=== PATIENT | female | born 1985 | race Caucasian/White ===

== ENCOUNTER 2016-12-20 10:34 | Emergency (ER) | payer OTHER ==
[2016-12-20] MEDS ORDERED: ONDANSETRON 4 MG ORAL DISINTEGRATING TAB (S0181) As Ordered ONE (11:18)
[2016-12-20] MEDS ORDERED: KETOROLAC 30 MG/ML VIAL (J1885) As Ordered ONE (11:18)
[2016-12-20 11:52] LABS: BASO % 0.4 % (0.0-1.0); EOS # 0.1 K/mm3 (0.0-0.50); EOS % 1.9 % (0.0-3.0); LARGE UNSTAINED CELL # 0.1 K/mm3 (0.0-0.4); LARGE UNSTAINED CELL % 1.7 % (0.0-4.0); LYMPH # 0.8 K/mm3 (1.5-6.5); LYMPH % 15.6 % (24.0-44.0); MEAN CORPUSCULAR HEMOGLOBIN 27.6 pg (27.0-33.0); MEAN CORPUSCULAR HGB CONC 32.4 g/dl (32.0-36.5); MEAN CORPUSCULAR VOLUME 85.2 fl (80.0-96.0); MONO # 0.4 K/mm3 (0.0-0.8); NEUTROPHILS # 3.1 K/mm3 (1.8-7.7); NEUTROPHILS % 70.4 % (36.0-66.0); PLATELET COUNT, AUTOMATED 241 k/mm3 (150-450); RED CELL DISTRIBUTION WIDTH 13.2 % (11.5-14.5); WHITE BLOOD COUNT 4.4 K/mm3 (4.0-10.0)
[2016-12-20 12:16] LABS: ANION GAP 8 MEQ/L (8-16); BLOOD UREA NITROGEN 8 MG/DL (7-18); CALCIUM LEVEL 8.7 MG/DL (8.5-10.1); CARBON DIOXIDE LEVEL 25 MEQ/L (21-32); CHLORIDE LEVEL 106 MEQ/L (98-107); CREATININE FOR GFR 0.78 MG/DL (0.55-1.02); GLOMERULAR FILTRATION RATE > 60.0 (>60); GLUCOSE, FASTING 88 MG/DL (70-105); POTASSIUM SERUM 3.8 MEQ/L (3.5-5.1); SODIUM LEVEL 139 MEQ/L (136-145)
--- NOTE | 2016-12-20 12:40 | REP ---
Clinical: Pelvic pain. Rule out torsion . Technique: Transabdominal pelvic ultrasound followed by transvaginal examination for better evaluation of the endometrium and adnexa with color Doppler evaluation of the ovaries. Findings: Bladder is unremarkable and measures 5.8 x 2.1 x 3.7 cm . Normal anteverted uterus measures 6.6 x 3.1 x 3.5 cm and IUD in satisfactory position . The endometrial complex measures 3.0 mm thickness. No discrete uterine or endometrial abnormalities are appreciated. Bilateral ovaries are normal in appearance and vascularity without evidence for torsion. Right ovary measures 2.4 x 1.8 x 3.1 cm ; R I = 0.66 . Left ovary measures 3.1 x 2.6 x 2.8 cm with 2.1 cm dominant follicle ; R I = venous flow noted . Small amount of pelvic free fluid likely physiologic. No adnexal mass. Impression: 1. Normal uterus and ovaries without evidence for torsion. IUD in satisfactory position. II. Small amount of free fluid in the pelvis likely physiologic. Signed by Edmundo Mooney MD 12/20/2016 12:31 P
--- NOTE | 2016-12-20 13:12 | EDDOCDS ---
Physician Documentation [facility] Name: Christine Doe Age: 31 yrs Sex: Female : 1985 Arrival Date: 12/20/2016 Time: 10:34 Bed PR Private MD: Josephine Vargas E Disposition: 12/20/16 12:46 Discharged to Home/Self Care. Impression: Viral infection, unspecified, Nasal congestion, Abdominal and pelvic pain. - Condition is Stable. - Discharge Instructions: Pelvic Pain, Female, [id number], Viral Infections, [id number]. - Prescriptions for Diclofenac Sodium 75 mg Oral Tablet, Delayed Release (E.C.) - take 1 tablet by ORAL route 2 times per day; 30 tablet. Zofran 4 mg Oral Tablet - take 1 tablet by ORAL route 4 times per day As needed; 10 tablet. - Medication Reconciliation, Local Pharmacy Hours form. - Follow up: Josephine Vargas; When: Call to arrange an appointment; Reason: Further diagnostic work-up, Recheck today's complaints, Continuance of care. - Problem is new. - Symptoms are unchanged. Historical: - Allergies: Ceclor (Anaphylaxis); - Home Meds: 1. none - PMHx: iga immune deficiency; Seasonal Allergies; RAD; - PSHx: wisdom teeth; sinus stents; - Social history: Smoking status: Patient states was never smoker of tobacco. No barriers to communication noted, The patient speaks fluent Spanish, Speaks appropriately for age. - Family history: No immediate family members are acutely ill. - : The pt / caregiver states he / she is not on anticoagulants. Home medication list is obtained from the patient. - Exposure Risk Screening:: None identified. 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 2 in. (157.48 cm); Pain 7/10; 10:35 Body Mass Index 25.61 (63.50 kg, 157.48 cm) [facility] MDM: 11:14 UCG by Nursing ordered. btw 11:14 Ondansetron ODT Oral Disintegrating Tablet 4 mg PO once ordered. btw 11:14 ketorolac 30 mg IM once ordered. btw 11:30 US PELVIC NON-OB COMPLETE Ordered. EDMS 11:30 DUPLEX SCAN LIMITED (DOPPLER) Ordered. EDMS 11:31 URINALYSIS Ordered. EDMS 11:31 CBC WITH DIFFERENTIAL Ordered. EDMS 11:31 BASIC METABOLIC PROFILE Ordered. EDMS 11:31 URINE CULTURE Ordered. EDMS 11:43 Financial registration complete. lg 11:56 [facility] Payment Agreement was scanned into [employer] and attached to record. lg 11:59 Transvaginal NON- US Ordered. EDMS 12:41 URINALYSIS Reviewed. btw 12:41 CBC WITH DIFFERENTIAL Reviewed. btw 12:41 BASIC METABOLIC PROFILE Reviewed. btw 12:41 US PELVIC NON-OB COMPLETE Reviewed. btw Point of Care Testing: Urine : 11:59 hCG Reading: Negative; Control Reading: Positive; [facility] Ranges: Administered Medications: 11:27 Drug: Ondansetron ODT 4 mg [ondansetron 4 mg disintegrating tablet (1 tabs)] Route: PO; [facility] 11:27 Drug: ketorolac 30 mg [ketorolac 30 mg/mL (1 mL) injection solution (1 mL)] Route: IM; [facility] Site: left deltoid; 13:09 Follow up: Response: Pain is decreased [facility] Signatures: Dispatcher [facility] Ebenezer Stein RN RN Tamanna Bill RN RN [facility] Dangelo Blum, Hussein Reg lg Flaco Khoury PA PA w Yoselyn Pennington RN [facility] The chart was reviewed and I authenticate all verbal orders and agree with the evaluation and treatment provided.Corrections: (The following items were deleted from the chart) 13:02 12:54 US PELVIC NON-OB COMPLETE+US ordered. EDMS EDMS 13:02 12:54 DUPLEX SCAN LIMITED (DOPPLER)+US ordered. EDMS EDMS 13:04 12:54 URINE CULTURE+NHUNG ordered. EDMS EDMS 13:06 12:54 URINALYSIS+LAB ordered. EDMS EDMS 13:07 12:54 CBC WITH DIFFERENTIAL+LAB ordered. EDMS EDMS 13:07 12:54 BASIC METABOLIC PROFILE+LAB ordered. EDMS EDMS Attachments: 11:56 [facility] Payment Agreement lg MTDD
--- NOTE | 2016-12-20 13:12 | EDDOCDS ---
Nurse's Notes [facility] Name: Christine Doe Age: 31 yrs Sex: Female : 1985 Arrival Date: 12/20/2016 Time: 10:34 Bed PR Private MD: Josephine Vargas E Diagnosis: Viral infection, unspecified;Nasal congestion;Abdominal and pelvic pain Presentation: 12/20 10:45 Presenting complaint: Patient states: weak, body aches and chills, sweating. temp 99.7. srm symptoms for 24 hours. no sore throat, cough, runny nose. Adult Sepsis Screening: The patient does not have new or worsening altered mentation. Patient's respiratory rate is less than 22. Systolic blood pressure is greater than 100. Patient has a qSOFA score of 0- Negative Sepsis Screen. Suicide/Homicide risk assessment- the patient denies having any suicidal and/or homicidal ideations and does not present with any other emotional, behavioral or mental health complaints. Status: The patient is a dependent. Transition of care: patient was not received from another setting of care. 10:45 Acuity: CATHERINE Level 4 srm 10:45 Method Of Arrival: Walkin/Carried/Asstd srm Triage Assessment: 10:47 General: Appears in no apparent distress, Behavior is appropriate for age, cooperative. srm Pain: Pain currently is 7 out of 10 on a pain scale. Pt Declines HIV testing. 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 none - PMHx: iga immune deficiency; Seasonal Allergies; RAD; - PSHx: wisdom teeth; sinus stents; - Social history: Smoking status: Patient states was never smoker of tobacco. No barriers to communication noted, The patient speaks fluent Setswana, Speaks appropriately for age. - Family history: No immediate family members are acutely ill. - : The pt / caregiver states he / she is not on anticoagulants. Home medication list is obtained from the patient. - Exposure Risk Screening:: None identified. Screenin:09 Screening information is obtained from the patient. Fall risk: No risks identified. bcj Assistance ADL's: requires no assistance with activities of daily living. Abuse/DV Screen: The patient / caregiver reports he/she is: not in a situation that causes fear, pain or injury. Nutritional screening: No deficits noted. Advance Directives: Currently, there is no health care proxy. home support is adequate. Assessment: 12:00 General: Appears in no apparent distress, comfortable, Behavior is tearful while [facility] receiving medications and shaking and tearful when blood drawn, states "I feel very nervous about needles". Reviewed patient choices, related concerns to provider and reviewed NPO with patient. 13:09 General: Appears in no apparent distress, comfortable, Behavior is cooperative. Pain: bcj Denies pain. Derm: Skin is pink, warm & dry. Vital Signs: 10:35 BP 143 / 78; Pulse 70; Resp 18; Temp 97.6; Pulse Ox 99% ; Weight 63.5 kg; Height 5 ft. jlm 2 in. (157.48 cm); Pain 7/10; 10:35 Body Mass Index 25.61 (63.50 kg, 157.48 cm) [facility] Vitals: 10:35 Log In Time: December 20, 2016 at 10:35. [facility] ED Course: 10:34 Patient visited by Sandra Lugo, Shade Cutter. jlm 10:34 Patient moved to Waiting jlm 10:35 Josephine Vargas is Private Physician. jlm 10:36 Patient moved to Pre RCE jlm 10:46 Triage Initiated srm 10:53 Patient moved to Triage 3 sew 10:59 [facility] btw 10:59 Fauzia Chavez MD is Attending Physician. btw 10:59 Patient visited by Flaco Khoury PA. btw 11:39 Patient moved to TR2 sew 11:48 Patient moved to Ultrasound br3 11:55 Patient name changed from Christine\\S\\\\S\\Hughs\\S\\ to Christine\\S\\Rula\\S\\Hughs. EDMS 11:56 [facility] Payment Agreement was scanned into [employer] and attached to record. lg 12:12 Patient moved to TR2 br3 12:41 US PELVIC NON-OB COMPLETE Returned. EDMS 12:46 Josephine Vargas is Referral Physician. btw 12:46 Patient moved to PR1 / 25 [facility] 13:09 No apparent distress. Awaiting disposition. bcj 13:09 The patient / caregiver is instructed regarding the plan of care and ED course. bcj 13:09 No IV's were initiated during this patient's visit. No procedures done that require [facility] assistance. 13:11 Patient visited by Ebenezer Oconnor RN. [facility] Administered Medications: 11:27 Drug: Ondansetron ODT 4 mg [ondansetron 4 mg disintegrating tablet (1 tabs)] Route: PO; [facility] 11:27 Drug: ketorolac 30 mg [ketorolac 30 mg/mL (1 mL) injection solution (1 mL)] Route: IM; [facility] Site: left deltoid; 13:09 Follow up: Response: Pain is decreased [facility] Point of Care Testing: Urine : 11:59 hCG Reading: Negative; Control Reading: Positive; [facility] Ranges: Order Results: Lab Order: URINALYSIS; SPEC'M 12/20/16 11:33 Test: APPEARANCE, URINE; Value: CLEAR; Range: CLEAR; Status: F Test: COLOR, URINE; Value: YELLOW; Range: YELLOW; Status: F Test: PH,URINE; Value: 6.0; Range: 5.0-9.0; Units: UNITS; Status: F Test: SPECIFIC GRAVITY URINE AUTO; Value: 1.006; Range: 1.002-1.035; Status: F Test: PROTEIN, URINE AUTO; Value: NEGATIVE; Range: NEGATIVE; Units: mg/dL; Status: F Test: GLUCOSE, URINE (UA) AUTO; Value: NEGATIVE; Range: NEGATIVE; Units: mg/dL; Status: F Test: KETONE, URINE AUTO; Value: TRACE; Range: NEGATIVE; Abnormal: Above high normal; Units: mg/dL; Status: F Test: UROBILINOGEN, URINE AUTO; Value: 0.2; Range: 0.0-2.0; Units: mg/dL; Status: F Test: BILIRUBIN, URINE AUTO; Value: NEGATIVE; Range: NEGATIVE; Status: F Test: NITRITE, URINE AUTO; Value: NEGATIVE; Range: NEGATIVE; Status: F Test: LEUKOCYTE ESTERASE, URINE AUTO; Value: NEGATIVE; Range: NEGATIVE; Status: F Test: BLOOD, URINE BLOOD; Value: NEGATIVE; Range: NEGATIVE; Status: F Test: WBC, URINE AUTO; Value: 0; Range: 0-3; Units: /HPF; Status: F Test: RBC, URINE AUTO; Value: 1; Range: 0-3; Units: /HPF; Status: F Test: BACTERIA, URINE AUTO; Value: 1+; Range: NEGATIVE; Abnormal: Above high normal; Status: F Test: SQUAMOUS EPITHELIAL CELL UR AU; Value: 1; Range: 0-6; Units: /HPF; Status: F Test: HYALINE CAST, URINE AUTO; Value: 0; Range: 0-1; Units: /LPF; Status: F Lab Order: CBC WITH DIFFERENTIAL; SPEC'M 12/20/16 11:32 Test: WHITE BLOOD COUNT; Value: 4.4; Range: 4.0-10.0; Units: K/mm3; Status: F Test: RED BLOOD COUNT; Value: 5.24; Range: 4.00-5.40; Units: M/mm3; Status: F Test: HEMOGLOBIN; Value: 14.5; Range: 12.0-16.0; Units: g/dl; Status: F Test: HEMATOCRIT; Value: 44.6; Range: 36.0-47.0; Units: %; Status: F Test: MEAN CORPUSCULAR VOLUME; Value: 85.2; Range: 80.0-96.0; Units: fl; Status: F Test: MEAN CORPUSCULAR HEMOGLOBIN; Value: 27.6; Range: 27.0-33.0; Units: pg; Status: F Test: MEAN CORPUSCULAR HGB CONC; Value: 32.4; Range: 32.0-36.5; Units: g/dl; Status: F Test: RED CELL DISTRIBUTION WIDTH; Value: 13.2; Range: 11.5-14.5; Units: %; Status: F Test: PLATELET COUNT, AUTOMATED; Value: 241; Range: 150-450; Units: k/mm3; Status: F Test: NEUTROPHILS %; Value: 70.4; Range: 36.0-66.0; Abnormal: Above high normal; Units: %; Status: F Test: LYMPH %; Value: 15.6; Range: 24.0-44.0; Abnormal: Below low normal; Units: %; Status: F Test: MONO %; Value: 10.0; Range: 0.0-5.0; Abnormal: Above high normal; Units: %; Status: F Test: EOS %; Value: 1.9; Range: 0.0-3.0; Units: %; Status: F Test: BASO %; Value: 0.4; Range: 0.0-1.0; Units: %; Status: F Test: LARGE UNSTAINED CELL %; Value: 1.7; Range: 0.0-4.0; Units: %; Status: F Test: NEUTROPHILS #; Value: 3.1; Range: 1.8-7.7; Units: K/mm3; Status: F Test: LYMPH #; Value: 0.8; Range: 1.5-6.5; Abnormal: Below low normal; Units: K/mm3; Status: F Test: MONO #; Value: 0.4; Range: 0.0-0.8; Units: K/mm3; Status: F Test: EOS #; Value: 0.1; Range: 0.0-0.50; Units: K/mm3; Status: F Test: BASO #; Value: 0.0; Range: 0.0-0.2; Units: K/mm3; Status: F Test: LARGE UNSTAINED CELL #; Value: 0.1; Range: 0.0-0.4; Units: K/mm3; Status: F Lab Order: BASIC METABOLIC PROFILE; [facility] 12/20/16 11:32 Test: GLUCOSE, FASTING; Value: 88; Range: 70-105; Units: MG/DL; Status: F Test: BLOOD UREA NITROGEN; Value: 8; Range: 7-18; Units: MG/DL; Status: F Test: CREATININE FOR GFR; Value: 0.78; Range: 0.55-1.02; Units: MG/DL; Status: F Test: GLOMERULAR FILTRATION RATE; Value: > 60.0; Range: >60; Status: F Test: SODIUM LEVEL; Value: 139; Range: 136-145; Units: MEQ/L; Status: F Test: POTASSIUM SERUM; Value: 3.8; Range: 3.5-5.1; Units: MEQ/L; Status: F Test: CHLORIDE LEVEL; Value: 106; Range: 98-107; Units: MEQ/L; Status: F Test: CARBON DIOXIDE LEVEL; Value: 25; Range: 21-32; Units: MEQ/L; Status: F Test: ANION GAP; Value: 8; Range: 8-16; Units: MEQ/L; Status: F Test: CALCIUM LEVEL; Value: 8.7; Range: 8.5-10.1; Units: MG/DL; Status: F Test Note: ; Units are mL/min/1.73 m2 Chronic Kidney Disease Staging per NKF: Stage I & II GFR >=60 Normal to Mildly Decreased Stage III GFR 30-59 Moderately Decreased Stage IV GFR 15-29 Severely Decreased Stage V GFR <15 Very Little GFR Left ESRD GFR <15 on PATHOLOGY TEACHER Radiology Order: US PELVIC NON-OB COMPLETE Test: US PELVIC NON-OB COMPLETE REASON FOR EXAMINATION: ADNEXAL PAIN R/O TORSION; Clinical: Pelvic pain. Rule out torsion .; ; Technique: Transabdominal pelvic ultrasound followed by transvaginal examination; for better evaluation of the endometrium and adnexa with color Doppler evaluation; of the ovaries.; ; Findings:; ; Bladder is unremarkable and measures 5.8 x 2.1 x 3.7 cm .; ; Normal anteverted uterus measures 6.6 x 3.1 x 3.5 cm and IUD in satisfactory; position . The endometrial complex measures 3.0 mm thickness. No discrete; uterine or endometrial abnormalities are appreciated.; ; Bilateral ovaries are normal in appearance and vascularity without evidence for; torsion. Right ovary measures 2.4 x 1.8 x 3.1 cm ; R I = 0.66 . Left ovary; measures 3.1 x 2.6 x 2.8 cm with 2.1 cm dominant follicle ; R I = venous flow; noted .; ; Small amount of pelvic free fluid likely physiologic. No adnexal mass.; ; Impression:; 1. Normal uterus and ovaries without evidence for torsion. IUD in satisfactory; position.; II. Small amount of free fluid in the pelvis likely physiologic.; ; ; Signed by; Edmundo Mooney MD 12/20/2016 12:31 P; Outcome: 12:46 Discharge ordered by Provider. btw 13:09 Discharge Assessment: patient administered narcotics - no. The following High Risk j Discharge criteria are identified: None. Discharged to home ambulatory, with family. Condition: stable. Discharge instructions given to patient, Instructed on discharge instructions, follow up and referral plans. medication usage, Prescriptions given X 2. Ultrasound Study completed. Property :Personal belongings accompany Pt. 13:11 Patient left the ED. bcj Signatures: Dispatcher [employer] Ebenezer Stein, RN RN Tamanna Bill, RN RN Dangelo Wilson, Reg Reg Svetlana Keyes br3 Flaco Khoury PA PA btw Hafner, Jane,RN RN [facility] Thad, Sandra Tovar, Shade Cutter Unit [facility] MTDD
--- NOTE | 2016-12-22 14:12 | EDDOCDS ---
Physician Documentation [facility] Name: Christine Doe Age: 31 yrs Sex: Female : 1985 Arrival Date: 12/20/2016 Time: 10:34 Bed PR Private MD: Josephine Vargas E Disposition: 12/20/16 12:46 Discharged to Home/Self Care. Impression: Viral infection, unspecified, Nasal congestion, Abdominal and pelvic pain. - Condition is Stable. - Discharge Instructions: Pelvic Pain, Female, [id number], Viral Infections, [id number]. - Prescriptions for Diclofenac Sodium 75 mg Oral Tablet, Delayed Release (E.C.) - take 1 tablet by ORAL route 2 times per day; 30 tablet. Zofran 4 mg Oral Tablet - take 1 tablet by ORAL route 4 times per day As needed; 10 tablet. - Medication Reconciliation, Local Pharmacy Hours form. - Follow up: Josephine Vargas; When: Call to arrange an appointment; Reason: Further diagnostic work-up, Recheck today's complaints, Continuance of care. - Problem is new. - Symptoms are unchanged. Historical: - Allergies: Ceclor (Anaphylaxis); - Home Meds: 1. none - PMHx: iga immune deficiency; Seasonal Allergies; RAD; - PSHx: wisdom teeth; sinus stents; - Social history: Smoking status: Patient states was never smoker of tobacco. No barriers to communication noted, The patient speaks fluent Kinyarwanda, Speaks appropriately for age. - Family history: No immediate family members are acutely ill. - : The pt / caregiver states he / she is not on anticoagulants. Home medication list is obtained from the patient. - Exposure Risk Screening:: None identified. 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 2 in. (157.48 cm); Pain 7/10; 10:35 Body Mass Index 25.61 (63.50 kg, 157.48 cm) [facility] MDM: 11:14 UCG by Nursing ordered. btw 11:14 Ondansetron ODT Oral Disintegrating Tablet 4 mg PO once ordered. btw 11:14 ketorolac 30 mg IM once ordered. btw 11:30 US PELVIC NON-OB COMPLETE Ordered. EDMS 11:30 DUPLEX SCAN LIMITED (DOPPLER) Ordered. EDMS 11:31 URINALYSIS Ordered. EDMS 11:31 CBC WITH DIFFERENTIAL Ordered. EDMS 11:31 BASIC METABOLIC PROFILE Ordered. EDMS 11:31 URINE CULTURE Ordered. EDMS 11:43 Financial registration complete. lg 11:56 [facility] Payment Agreement was scanned into [employer] and attached to record. lg 11:59 Transvaginal NON- US Ordered. EDMS 12:41 URINALYSIS Reviewed. btw 12:41 CBC WITH DIFFERENTIAL Reviewed. btw 12:41 BASIC METABOLIC PROFILE Reviewed. btw 12:41 US PELVIC NON-OB COMPLETE Reviewed. btw 21:27 T-Sheet-- Draft Copy was scanned into [employer] and attached to record. ken Point of Care Testing: Urine : 11:59 hCG Reading: Negative; Control Reading: Positive; [facility] Ranges: Administered Medications: 11:27 Drug: Ondansetron ODT 4 mg [ondansetron 4 mg disintegrating tablet (1 tabs)] Route: PO; [facility] 11:27 Drug: ketorolac 30 mg [ketorolac 30 mg/mL (1 mL) injection solution (1 mL)] Route: IM; [facility] Site: left deltoid; 13:09 Follow up: Response: Pain is decreased [facility] Signatures: Dispatcher [employer] Ebenezer Stein RN RN Tamanna Bill RN RN srm Ganter, LoriLee, Hussein Reg Flaco Khoury PA PA btw Redder, Kathie klr Hafner, Jane RN [facility] The chart was reviewed and I authenticate all verbal orders and agree with the evaluation and treatment provided.Corrections: (The following items were deleted from the chart) 13:02 12:54 US PELVIC NON-OB COMPLETE+US ordered. EDMS EDMS 13:02 12:54 DUPLEX SCAN LIMITED (DOPPLER)+US ordered. EDMS EDMS 13:04 12:54 URINE CULTURE+NHUNG ordered. EDMS EDMS 13:06 12:54 URINALYSIS+LAB ordered. EDMS EDMS 13:07 12:54 CBC WITH DIFFERENTIAL+LAB ordered. EDMS EDMS 13:07 12:54 BASIC METABOLIC PROFILE+LAB ordered. EDMS EDMS Attachments: 11:56 [facility] Payment Agreement lg 21:27 T-Sheet-- Draft Copy klr Chart Complete MTDD
--- NOTE | 2016-12-22 14:12 | EDDOCDS ---
Nurse's Notes [facility] Name: Christine Doe Age: 31 yrs Sex: Female : 1985 Arrival Date: 12/20/2016 Time: 10:34 Bed PR Private MD: Josephine Vargas E Diagnosis: Viral infection, unspecified;Nasal congestion;Abdominal and pelvic pain Presentation: 12/20 10:45 Presenting complaint: Patient states: weak, body aches and chills, sweating. temp 99.7. srm symptoms for 24 hours. no sore throat, cough, runny nose. Adult Sepsis Screening: The patient does not have new or worsening altered mentation. Patient's respiratory rate is less than 22. Systolic blood pressure is greater than 100. Patient has a qSOFA score of 0- Negative Sepsis Screen. Suicide/Homicide risk assessment- the patient denies having any suicidal and/or homicidal ideations and does not present with any other emotional, behavioral or mental health complaints. Status: The patient is a dependent. Transition of care: patient was not received from another setting of care. 10:45 Acuity: CATHERINE Level 4 srm 10:45 Method Of Arrival: Walkin/Carried/Asstd srm Triage Assessment: 10:47 General: Appears in no apparent distress, Behavior is appropriate for age, cooperative. srm Pain: Pain currently is 7 out of 10 on a pain scale. Pt Declines HIV testing. 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 none - PMHx: iga immune deficiency; Seasonal Allergies; RAD; - PSHx: wisdom teeth; sinus stents; - Social history: Smoking status: Patient states was never smoker of tobacco. No barriers to communication noted, The patient speaks fluent Greenlandic, Speaks appropriately for age. - Family history: No immediate family members are acutely ill. - : The pt / caregiver states he / she is not on anticoagulants. Home medication list is obtained from the patient. - Exposure Risk Screening:: None identified. Screenin:09 Screening information is obtained from the patient. Fall risk: No risks identified. bcj Assistance ADL's: requires no assistance with activities of daily living. Abuse/DV Screen: The patient / caregiver reports he/she is: not in a situation that causes fear, pain or injury. Nutritional screening: No deficits noted. Advance Directives: Currently, there is no health care proxy. home support is adequate. Assessment: 12:00 General: Appears in no apparent distress, comfortable, Behavior is tearful while [facility] receiving medications and shaking and tearful when blood drawn, states "I feel very nervous about needles". Reviewed patient choices, related concerns to provider and reviewed NPO with patient. 13:09 General: Appears in no apparent distress, comfortable, Behavior is cooperative. Pain: bcj Denies pain. Derm: Skin is pink, warm & dry. Vital Signs: 10:35 BP 143 / 78; Pulse 70; Resp 18; Temp 97.6; Pulse Ox 99% ; Weight 63.5 kg; Height 5 ft. jlm 2 in. (157.48 cm); Pain 7/10; 10:35 Body Mass Index 25.61 (63.50 kg, 157.48 cm) [facility] Vitals: 10:35 Log In Time: December 20, 2016 at 10:35. [facility] ED Course: 10:34 Patient visited by Sandra Lugo, Tool/Die Maker. jlm 10:34 Patient moved to Waiting jlm 10:35 Josephine Vargas is Private Physician. jlm 10:36 Patient moved to Pre RCE jlm 10:46 Triage Initiated srm 10:53 Patient moved to Triage 3 sew 10:59 [facility]aco Khour[facility]. btw 10:59 Fauzia Chavez MD is Attending Physician. btw 10:59 Patient visited by Flaco Khoury PA. btw 11:39 Patient moved to TR2 sew 11:48 Patient moved to Ultrasound br3 11:55 Patient name changed from Christine\\S\\\\S\\Hughs\\S\\ to Christine\\S\\Rula\\S\\Hughs. EDMS 11:56 [facility] Payment Agreement was scanned into [employer] and attached to record. lg 12:12 Patient moved to TR2 br3 12:41 US PELVIC NON-OB COMPLETE Returned. EDMS 12:46 Josephine Vargas is Referral Physician. btw 12:46 Patient moved to PR1 / 25 [facility] 13:09 No apparent distress. Awaiting disposition. bcj 13:09 The patient / caregiver is instructed regarding the plan of care and ED course. bcj 13:09 No IV's were initiated during this patient's visit. No procedures done that require [facility] assistance. 13:11 Patient visited by Ebenezer Oconnor RN. [facility] 21:27 T-Sheet-- Draft Copy was scanned into [employer] and attached to record. klr Administered Medications: 11:27 Drug: Ondansetron ODT 4 mg [ondansetron 4 mg disintegrating tablet (1 tabs)] Route: PO; [facility] 11:27 Drug: ketorolac 30 mg [ketorolac 30 mg/mL (1 mL) injection solution (1 mL)] Route: IM; [facility] Site: left deltoid; 13:09 Follow up: Response: Pain is decreased [facility] Point of Care Testing: Urine : 11:59 hCG Reading: Negative; Control Reading: Positive; [facility] Ranges: Order Results: Lab Order: URINALYSIS; SPEC'M 12/20/16 11:33 Test: APPEARANCE, URINE; Value: CLEAR; Range: CLEAR; Status: F Test: COLOR, URINE; Value: YELLOW; Range: YELLOW; Status: F Test: PH,URINE; Value: 6.0; Range: 5.0-9.0; Units: UNITS; Status: F Test: SPECIFIC GRAVITY URINE AUTO; Value: 1.006; Range: 1.002-1.035; Status: F Test: PROTEIN, URINE AUTO; Value: NEGATIVE; Range: NEGATIVE; Units: mg/dL; Status: F Test: GLUCOSE, URINE (UA) AUTO; Value: NEGATIVE; Range: NEGATIVE; Units: mg/dL; Status: F Test: KETONE, URINE AUTO; Value: TRACE; Range: NEGATIVE; Abnormal: Above high normal; Units: mg/dL; Status: F Test: UROBILINOGEN, URINE AUTO; Value: 0.2; Range: 0.0-2.0; Units: mg/dL; Status: F Test: BILIRUBIN, URINE AUTO; Value: NEGATIVE; Range: NEGATIVE; Status: F Test: NITRITE, URINE AUTO; Value: NEGATIVE; Range: NEGATIVE; Status: F Test: LEUKOCYTE ESTERASE, URINE AUTO; Value: NEGATIVE; Range: NEGATIVE; Status: F Test: BLOOD, URINE BLOOD; Value: NEGATIVE; Range: NEGATIVE; Status: F Test: WBC, URINE AUTO; Value: 0; Range: 0-3; Units: /HPF; Status: F Test: RBC, URINE AUTO; Value: 1; Range: 0-3; Units: /HPF; Status: F Test: BACTERIA, URINE AUTO; Value: 1+; Range: NEGATIVE; Abnormal: Above high normal; Status: F Test: SQUAMOUS EPITHELIAL CELL UR AU; Value: 1; Range: 0-6; Units: /HPF; Status: F Test: HYALINE CAST, URINE AUTO; Value: 0; Range: 0-1; Units: /LPF; Status: F Lab Order: CBC WITH DIFFERENTIAL; SPEC'M 12/20/16 11:32 Test: WHITE BLOOD COUNT; Value: 4.4; Range: 4.0-10.0; Units: K/mm3; Status: F Test: RED BLOOD COUNT; Value: 5.24; Range: 4.00-5.40; Units: M/mm3; Status: F Test: HEMOGLOBIN; Value: 14.5; Range: 12.0-16.0; Units: g/dl; Status: F Test: HEMATOCRIT; Value: 44.6; Range: 36.0-47.0; Units: %; Status: F Test: MEAN CORPUSCULAR VOLUME; Value: 85.2; Range: 80.0-96.0; Units: fl; Status: F Test: MEAN CORPUSCULAR HEMOGLOBIN; Value: 27.6; Range: 27.0-33.0; Units: pg; Status: F Test: MEAN CORPUSCULAR HGB CONC; Value: 32.4; Range: 32.0-36.5; Units: g/dl; Status: F Test: RED CELL DISTRIBUTION WIDTH; Value: 13.2; Range: 11.5-14.5; Units: %; Status: F Test: PLATELET COUNT, AUTOMATED; Value: 241; Range: 150-450; Units: k/mm3; Status: F Test: NEUTROPHILS %; Value: 70.4; Range: 36.0-66.0; Abnormal: Above high normal; Units: %; Status: F Test: LYMPH %; Value: 15.6; Range: 24.0-44.0; Abnormal: Below low normal; Units: %; Status: F Test: MONO %; Value: 10.0; Range: 0.0-5.0; Abnormal: Above high normal; Units: %; Status: F Test: EOS %; Value: 1.9; Range: 0.0-3.0; Units: %; Status: F Test: BASO %; Value: 0.4; Range: 0.0-1.0; Units: %; Status: F Test: LARGE UNSTAINED CELL %; Value: 1.7; Range: 0.0-4.0; Units: %; Status: F Test: NEUTROPHILS #; Value: 3.1; Range: 1.8-7.7; Units: K/mm3; Status: F Test: LYMPH #; Value: 0.8; Range: 1.5-6.5; Abnormal: Below low normal; Units: K/mm3; Status: F Test: MONO #; Value: 0.4; Range: 0.0-0.8; Units: K/mm3; Status: F Test: EOS #; Value: 0.1; Range: 0.0-0.50; Units: K/mm3; Status: F Test: BASO #; Value: 0.0; Range: 0.0-0.2; Units: K/mm3; Status: F Test: LARGE UNSTAINED CELL #; Value: 0.1; Range: 0.0-0.4; Units: K/mm3; Status: F Lab Order: BASIC METABOLIC PROFILE; [facility] 12/20/16 11:32 Test: GLUCOSE, FASTING; Value: 88; Range: 70-105; Units: MG/DL; Status: F Test: BLOOD UREA NITROGEN; Value: 8; Range: 7-18; Units: MG/DL; Status: F Test: CREATININE FOR GFR; Value: 0.78; Range: 0.55-1.02; Units: MG/DL; Status: F Test: GLOMERULAR FILTRATION RATE; Value: > 60.0; Range: >60; Status: F Test: SODIUM LEVEL; Value: 139; Range: 136-145; Units: MEQ/L; Status: F Test: POTASSIUM SERUM; Value: 3.8; Range: 3.5-5.1; Units: MEQ/L; Status: F Test: CHLORIDE LEVEL; Value: 106; Range: 98-107; Units: MEQ/L; Status: F Test: CARBON DIOXIDE LEVEL; Value: 25; Range: 21-32; Units: MEQ/L; Status: F Test: ANION GAP; Value: 8; Range: 8-16; Units: MEQ/L; Status: F Test: CALCIUM LEVEL; Value: 8.7; Range: 8.5-10.1; Units: MG/DL; Status: F Test Note: ; Units are mL/min/1.73 m2 Chronic Kidney Disease Staging per NKF: Stage I & II GFR >=60 Normal to Mildly Decreased Stage III GFR 30-59 Moderately Decreased Stage IV GFR 15-29 Severely Decreased Stage V GFR <15 Very Little GFR Left ESRD GFR <15 on MEMBER SERVICES COORDINATOR Lab Order: URINE CULTURE; SPEC'M 12/20/16 11:33 Test: URINE CULTURE; Value: <EXTERNAL COMMENT eCWMed> FULL REPORT IN LAB NOTES (eCW and Medent).; Status: F Test: URINE CULTURE; Value: URINE CULTURE RESULT; Status: F Test: URINE CULTURE; Value: NO GROWTH CLINICAL SIGNIFICANCE 2 OR MORE ORGANISMS; Status: F Radiology Order: US PELVIC NON-OB COMPLETE Test: US PELVIC NON-OB COMPLETE REASON FOR EXAMINATION: ADNEXAL PAIN R/O TORSION; Clinical: Pelvic pain. Rule out torsion .; ; Technique: Transabdominal pelvic ultrasound followed by transvaginal examination; for better evaluation of the endometrium and adnexa with color Doppler evaluation; of the ovaries.; ; Findings:; ; Bladder is unremarkable and measures 5.8 x 2.1 x 3.7 cm .; ; Normal anteverted uterus measures 6.6 x 3.1 x 3.5 cm and IUD in satisfactory; position . The endometrial complex measures 3.0 mm thickness. No discrete; uterine or endometrial abnormalities are appreciated.; ; Bilateral ovaries are normal in appearance and vascularity without evidence for; torsion. Right ovary measures 2.4 x 1.8 x 3.1 cm ; R I = 0.66 . Left ovary; measures 3.1 x 2.6 x 2.8 cm with 2.1 cm dominant follicle ; R I = venous flow; noted .; ; Small amount of pelvic free fluid likely physiologic. No adnexal mass.; ; Impression:; 1. Normal uterus and ovaries without evidence for torsion. IUD in satisfactory; position.; II. Small amount of free fluid in the pelvis likely physiologic.; ; ; Signed by; Edmundo Mooney MD 12/20/2016 12:31 P; Outcome: 12:46 Discharge ordered by Provider. bt 13:09 Discharge Assessment: patient administered narcotics - no. The following High Risk [facility] Discharge criteria are identified: None. Discharged to home ambulatory, with family. Condition: stable. Discharge instructions given to patient, Instructed on discharge instructions, follow up and referral plans. medication usage, Prescriptions given X 2. Ultrasound Study completed. Property :Personal belongings accompany Pt. 13:11 Patient left the ED. [facility] Signatures: Dispatcher [employer] EDMS Ebenezer Oconnor, RN RN Tamanna George, RN RN srm Dangelo Blum, Reg Reg lg Svetlana Rubio br3 Flaco Khoury PA PA btw Yoselyn PenningtonRN RN deanna Oneil, Sandra Tovar, Tool/Die Maker Unit Viviane Martines Chart Complete MTDAmber
--- NOTE | 2016-12-22 14:12 | EDDOCDS ---
Physician Documentation [facility] Name: Christine Doe Age: 31 yrs Sex: Female : 1985 Arrival Date: 12/20/2016 Time: 10:34 Bed PR Private MD: Josephine Vargas E Disposition: 12/20/16 12:46 Discharged to Home/Self Care. Impression: Viral infection, unspecified, Nasal congestion, Abdominal and pelvic pain. - Condition is Stable. - Discharge Instructions: Pelvic Pain, Female, [id number], Viral Infections, [id number]. - Prescriptions for Diclofenac Sodium 75 mg Oral Tablet, Delayed Release (E.C.) - take 1 tablet by ORAL route 2 times per day; 30 tablet. Zofran 4 mg Oral Tablet - take 1 tablet by ORAL route 4 times per day As needed; 10 tablet. - Medication Reconciliation, Local Pharmacy Hours form. - Follow up: Josephine Vargas; When: Call to arrange an appointment; Reason: Further diagnostic work-up, Recheck today's complaints, Continuance of care. - Problem is new. - Symptoms are unchanged. Historical: - Allergies: Ceclor (Anaphylaxis); - Home Meds: 1. none - PMHx: iga immune deficiency; Seasonal Allergies; RAD; - PSHx: wisdom teeth; sinus stents; - Social history: Smoking status: Patient states was never smoker of tobacco. No barriers to communication noted, The patient speaks fluent Greenlandic, Speaks appropriately for age. - Family history: No immediate family members are acutely ill. - : The pt / caregiver states he / she is not on anticoagulants. Home medication list is obtained from the patient. - Exposure Risk Screening:: None identified. 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 2 in. (157.48 cm); Pain 7/10; 10:35 Body Mass Index 25.61 (63.50 kg, 157.48 cm) [facility] MDM: 11:14 UCG by Nursing ordered. btw 11:14 Ondansetron ODT Oral Disintegrating Tablet 4 mg PO once ordered. btw 11:14 ketorolac 30 mg IM once ordered. btw 11:30 US PELVIC NON-OB COMPLETE Ordered. EDMS 11:30 DUPLEX SCAN LIMITED (DOPPLER) Ordered. EDMS 11:31 URINALYSIS Ordered. EDMS 11:31 CBC WITH DIFFERENTIAL Ordered. EDMS 11:31 BASIC METABOLIC PROFILE Ordered. EDMS 11:31 URINE CULTURE Ordered. EDMS 11:43 Financial registration complete. lg 11:56 [facility] Payment Agreement was scanned into [employer] and attached to record. lg 11:59 Transvaginal NON- US Ordered. EDMS 12:41 URINALYSIS Reviewed. btw 12:41 CBC WITH DIFFERENTIAL Reviewed. btw 12:41 BASIC METABOLIC PROFILE Reviewed. btw 12:41 US PELVIC NON-OB COMPLETE Reviewed. btw 21:27 T-Sheet-- Draft Copy was scanned into [employer] and attached to record. ken Point of Care Testing: Urine : 11:59 hCG Reading: Negative; Control Reading: Positive; [facility] Ranges: Administered Medications: 11:27 Drug: Ondansetron ODT 4 mg [ondansetron 4 mg disintegrating tablet (1 tabs)] Route: PO; [facility] 11:27 Drug: ketorolac 30 mg [ketorolac 30 mg/mL (1 mL) injection solution (1 mL)] Route: IM; [facility] Site: left deltoid; 13:09 Follow up: Response: Pain is decreased [facility] Signatures: Dispatcher [employer] Ebenezer Stein RN RN Tamanna Bill RN RN srm Ganter, LoriLee, Hussein Reg Flaco Khoury PA PA btw Redder, Kathie klr Hafner, Jane RN [facility] The chart was reviewed and I authenticate all verbal orders and agree with the evaluation and treatment provided.Corrections: (The following items were deleted from the chart) 13:02 12:54 US PELVIC NON-OB COMPLETE+US ordered. EDMS EDMS 13:02 12:54 DUPLEX SCAN LIMITED (DOPPLER)+US ordered. EDMS EDMS 13:04 12:54 URINE CULTURE+NHUNG ordered. EDMS EDMS 13:06 12:54 URINALYSIS+LAB ordered. EDMS EDMS 13:07 12:54 CBC WITH DIFFERENTIAL+LAB ordered. EDMS EDMS 13:07 12:54 BASIC METABOLIC PROFILE+LAB ordered. EDMS EDMS Attachments: 11:56 [facility] Payment Agreement lg 21:27 T-Sheet-- Draft Copy klr Chart Complete MTDD
== END 2016-12-20 13:11 | disposition home or self-care (01) ==
LOC: M ED 10:34
DX: B34.9 Viral infection, unspecified (principal); Z88.1 Allergy status to other antibiotic agents
CPT/HCPCS: 76830; 76856; 80048; 81001; 81025; 85025; 87086; 93976; 96372; 99284; J1885

== ENCOUNTER → 2017-04-14 | Day surgery (SDC) | payer OTHER ==
[~2017-04-14] VITALS: Ht 157.5 cm; Wt 62.1 kg
[~2017-04-14] MED LIST: ACETAMINOPHEN 650 MG SUPP As Ordered ONE; ACETAMINOPHEN 650 MG SUPP PR ONE; BUPIVACAINE HCL 0.25% 30 ML VIAL As Ordered ONE; DICL75TA PO; FLON1SPR; GLYCOPYRROLATE INJ 0.2 MG/ML 2 ML VIAL As Ordered ONE; HYDROmorphone HCL 1 MG/ML SYRINGE (J1170) IV PRN; IBUPROFEN 800 MG TAB PO SCH; KETOROLAC 60 MG/2 ML VIAL (J1885) As Ordered ONE; LIDOCAINE 2% INJ 100 MG/5 ML SDV (FOR ANES.) As Ordered ONE; LR 1,000 ML IV ONE; LR 1,000 ML IV SCH; MIDAZOLAM INJ 2 MG/2 ML VIAL (J2250) As Ordered ONE; MIDAZOLAM INJ 2 MG/2 ML VIAL (J2250) IV ONE; NEOSTIGMINE 1MG/ML 5 ML SYRINGE (J2710) As Ordered ONE; ONDANSETRON 4MG/2ML VIAL (J2405) As Ordered ONE; ONDANSETRON 4MG/2ML VIAL (J2405) IV PRN; PERCOCET 5MG/325MG TAB PO PRN; PERCOCET PO; PROPOFOL 200 MG/20 ML VIAL As Ordered ONE; ROCURONIUM BROMIDE 50 MG/5 ML VIAL As Ordered ONE; SKYL13.5 IU; dexameTHASONE 4 MG/ML 1ML VIAL (J1100) As Ordered ONE; fentaNYL 100 MCG/2 ML INJECTION (J3010) As Ordered ONE
[2017-04-14 06:50] LABS: MEAN CORPUSCULAR HGB CONC 33.5 g/dl (32.0-36.5); MEAN CORPUSCULAR VOLUME 86.3 fl (80.0-96.0); WHITE BLOOD COUNT 4.8 K/mm3 (4.0-10.0)
[2017-04-14 07:09] LABS: ANION GAP 6 MEQ/L (8-16); BLOOD UREA NITROGEN 8 MG/DL (7-18); CALCIUM LEVEL 9.1 MG/DL (8.5-10.1); CARBON DIOXIDE LEVEL 26 MEQ/L (21-32); CHLORIDE LEVEL 105 MEQ/L (98-107); GLOMERULAR FILTRATION RATE > 60.0 (>60); GLUCOSE, FASTING 97 MG/DL (70-105); POTASSIUM SERUM 4.2 MEQ/L (3.5-5.1); SODIUM LEVEL 137 MEQ/L (136-145)
[2017-04-14 07:10] LABS: CONTROL LINE HCG INT CTR LINE PRESENT
[2017-04-14] MEDS: fentaNYL 100 MCG/2 ML INJECTION (J3010) IV PRN ×4 (09:19→09:34)
[2017-04-14 11:55] VITALS: BP 118/58
--- NOTE | 2017-04-15 16:04 | RO ---
DATE OF PROCEDURE: 04/14/2017 Christine is a 31-year-old female with extensive history of pelvic pain, dysmenorrhea and in the office a decision was made to proceed with a diagnostic laparoscopy, possible fulguration of endometriosis. PREOPERATIVE DIAGNOSES: 1. Pelvic pain. 2. Dysmenorrhea. 3. Cannot rule out endometriosis. POSTOPERATIVE DIAGNOSES: 1. Pelvic pain. 2. Dysmenorrhea. 3. Cannot rule out endometriosis. 4. Endometriotic implant in the uterosacral ligament. The cul-de-sac and an endometriotic window noted on the left peritoneal area. ANESTHESIA: General. SURGEON: Dr. Rdz COMPLICATIONS: None. ESTIMATED BLOOD LOSS: Less than 10 mL. FINDINGS Endometriotic implant in the posterior cul-de-sac. The uterosacral ligament and endometriotic window on the left peritoneal area, pelvic adhesions noted to the left pelvic sidewall. PROCEDURE: After obtaining informed consent and speaking to the patient in the preop area. The patient was then taken to the operating room where under general anesthesia she was placed in dorsal lithotomy position. A Redman catheter was placed in the bladder for drainage. The uterine manipulator was then placed. At this point attention turned to the abdomen where a 5 mm infraumbilical incision was made using the Veress needle the abdomen was insufflated with CO2 gas to approximately 3.5 mm [place] trocar along with the laparoscope was inserted under direct visualization. Then a 5 mm right lateral port was placed. The patient was placed in Trendelenburg. The pelvis and upper abdomen inspected with the above-noted findings. At this point using an Endo shear the bowel adhesions to the left pelvic sidewall was taken down with careful manner not to injure the bowel for the ureters. After freeing the adhesions around the infundibulopelvic ligament, the ovary was identified. Ovary was found to be within normal limits. The fallopian tube was within normal limits. A large window was noted and the posterior cul-de-sac on that side significant for endometriosis endometriotic implant was also noted on the uterosacral ligament and the posterior cul-de-sac. At this point a 5 mm implant as well as the window was cauterized. Pelvis copiously irrigated with normal saline and suctioned out. Good hemostasis noted. The uterus appeared to be within normal limits. The rest of the upper abdomen was within normal limits. No evidence of any injuries noted. At this point all instruments were removed. Laparoscope was also removed and the incisions were closed using Dermabond. 0.25% Marcaine was placed at the operative site for postoperative pain. The patient tolerated procedure well. She was then transferred to recovery room in stable condition.
== END | disposition home or self-care (01) ==
LOC: M SDC 06:05
PROVIDERS: ATTEND Obstetrics & Gynecology
DX: N94.6 Dysmenorrhea, unspecified (principal); N80.9 Endometriosis, unspecified; F32.9 Major depressive disorder, single episode, unspecified; R63.0 Anorexia; T88.59XD Other complications of anesthesia, subsequent encounter; D80.2 Selective deficiency of immunoglobulin A [IgA]; M85.80 Other specified disorders of bone density and structure, unspecified site; J45.909 Unspecified asthma, uncomplicated; Z88.1 Allergy status to other antibiotic agents; Z79.899 Other long term (current) drug therapy; Z87.81 Personal history of (healed) traumatic fracture
CPT/HCPCS: 36415; 58662; 80048; 84703; 85027; 86850; 86900; 86901; J1100; J1885; J2250; J2405; J2710; J3010